=== PATIENT | male | born 1940 | race Caucasian/White ===

== ENCOUNTER 2017-11-19 10:16 | Emergency (ER) | payer OTHER ==
--- NOTE | 2017-11-19 11:29 | EDPHY ---
General Time Seen by Provider: 11/19/17 10:52 Narrative: CHIEF COMPLAINT: Constipation HISTORY OF PRESENT ILLNESS: Patient complains of constipation. This has been present for approximately 2 weeks. He has no complaints of pain and states that he is here "because my wanted me to get checked out." He does feel some rectal fullness at times. He has had some small, incomplete bowel movements that he describes as "round pellets." No bloody emesis. No diarrhea. No abdominal pain, fever or chills. No nausea or vomiting. He recently return from [place], where he lives in the winter. He has not changed his diet. He feels he has a high fiber intake. He may have a diagnosis irritable bowel, but denies any inflammatory bowel diagnoses. He reports regular colonoscopies with no abnormalities found. REVIEW OF SYSTEMS: Ten systems reviewed and are negative unless otherwise noted in the HPI PCP: Dr. Gandhi. Looking for a new primary care physician SPECIALISTS: None PAST MEDICAL HISTORY: Hypertension, questionable irritable bowel, dyslipidemia PAST SURGICAL HISTORY: Remote appendectomy and remote small-bowel obstruction with laparoscopy and lysis of adhesions SOCIAL HISTORY: Nonsmoker. Occasional cigars. Occasional alcohol use. No drug use. Retired FAMILY HISTORY: Noncontributory EXAMINATION General Appearance: Alert, no distress Head: normocephalic, atraumatic Eyes: Pupils equal and round, no conjunctival pallor or injection ENT, Mouth: Mucous membranes moist Neck: Normal inspection, supple, non-tender Respiratory: Lungs are clear to auscultation Cardiovascular: Regular rate and rhythm Gastrointestinal: Obese Abdomen is soft and nontender. No distention. No tympany. No rigidity. Bowel sounds are present all 4 quadrants. Rectal exam: There is moderate stool in the rectal vault. I was able to disimpact a small portion of this only. No quita blood in the stool. Back: non-tender, no bony abnormalities Neurological: A&O, nonfocal, normal gait Skin: Warm and dry, no rash no petechiae or purpura Extremities: Nontender, no pedal edema Psychiatric: Mood and affect normal DIFFERENTIAL DIAGNOSES: Including but not limited to fecal impaction, constipation, obstipation, bowel obstruction, ileus, irritable bowel MDM: 11:00 a.m. Constipation without any abdominal pain. He does have sensation of rectal fullness but is unable to perform full bowel movements. No blood in the stool. No abnormal colonoscopies per patient. No fever. Nausea vomiting. 11:20 a.m. I have performed a disimpaction myself. There was moderate amount of stool in the rectal vault. I did not retrieve all the stool. He has no abdominal pain and would like to go home and try enemas. I do feel this is reasonable at this time. We discussed Fleet enemas x2 if needed. We discussed magnesium citrate. We discussed return to emergency department if he does not have a vomit after this or if he develops any abdominal pain of any kind. He is comfortable this plan and would like to be discharged home. He discharged stable condition. PROCEDURE: Fecal disimpaction Consent: Verbal Description: Rectal exam performed with lubricant. There was moderate stool in the rectal vault. I was able to retrieve a small portion of this. Unable to perform complete disimpaction. Tolerated well. No quita blood in the stool. SUPERVISION: Patient was independently examined, but I discussed the case with my secondary supervising physician Dr. Smith - History Smoking Status: Current some day smoker - Objective Vital Signs: Initial Vital Signs Temperature (C) 97.5 F 11/19/17 10:26 Heart Rate 71 11/19/17 10:26 Respiratory Rate 16 11/19/17 10:26 Blood Pressure 159/79 H 11/19/17 10:26 O2 Sat (%) 94 11/19/17 10:26 O2 Delivery Mode Room Air Allergies/Adverse Reactions: meperidine HCl [From Demerol] Allergy (Verified 11/19/17 10:24) Home Medications: Medication Instructions Recorded Aspirin [Aspirin 81mg] 81 mg PO DAILY 02/21/11 Losartan Potassium 11/19/17 Pravastatin Sodium 11/19/17 Departure - Departure Disposition: Home, Routine, Self-Care Clinical Impression: Constipation Qualifiers: Constipation type: other constipation type Qualified Code(s): K59.09 - Other constipation Condition: Good Instructions: Polyethylene Glycol 3350 (By mouth), Magnesium Citrate (By mouth) , Irritable Bowel Syndrome (ED), Constipation (ED), Fleet Enema (ED) Additional Instructions: 1. Recommend Fleet enema as instructed on the box. Will repeat a 2nd enema if no bowel movement. 2. Recommend magnesium citrate [id number], 1 bottle if no bowel movement after the 1st 2 enemas 3. If these are successful, recommend MiraLax [id number]. One packet every other day or every day as needed. 4. Contact primary care physician for further care 5. Please return to the emergency department if you do not have a bowel movement today after the above. Return sooner if he have any abdominal pain, nausea vomiting Referrals: Helio Gandhi MD [Medical Doctor] - As per Instructions Alejandro Johnson MD [Medical Doctor] - As per Instructions
[2017-11-19 11:35] VITALS: BP 154/78
== END 2017-11-19 11:40 | disposition home or self-care (01) ==
DX: K59.09 Other constipation (principal); I10 Essential (primary) hypertension; F17.290 Nicotine dependence, other tobacco product, uncomplicated; Z79.82 Long term (current) use of aspirin

== ENCOUNTER → 2018-02-09 | Outpatient (CLI) | payer OTHER | LOC: FIMAGING 10:57 | PROVIDERS: ATTEND Internal Medicine Rheumatology | DX: Z13.820 Encounter for screening for osteoporosis (principal); M85.89 Other specified disorders of bone density and structure, multiple sites; M48.54XA Collapsed vertebra, not elsewhere classified, thoracic region, initial encounter for fracture; Z82.62 Family history of osteoporosis; Z79.52 Long term (current) use of systemic steroids ==